=== PATIENT | female | born 1975 | race Caucasian/White ===

== ENCOUNTER 2021-06-16 08:05 | Emergency (ER) | payer BC ==
[~2021-06-16] VITALS: Ht 172.7 cm; Wt 103.0 kg
[2021-06-16 09:11] LABS: BASOPHILS % 0.5 % (0.0-2.0); EOSINOPHILS % 2.5 % (0.0-5.0); HEMATOCRIT. 32.8 % (36.0-48.0); HEMOGLOBIN. 10.9 g/dL (12.0-16.0); LYMPHOCYTES % 27.4 % (20.0-50.0); MEAN CORPUSCULAR HEMOGLOBIN 27.3 pg (28.0-32.0); MEAN PLATELET VOLUME 10.1 fl (7.4-10.4); MONOCYTES % 9.3 % (2.0-8.0); NEUTROPHILS % 60.3 % (40.0-76.0); PLATELET 202 x1000/uL (130-400); RED BLOOD CELL COUNT 3.99 mill/uL (4.2-5.4); RED CELL DISTRIBUTION WIDTH 15.1 % (11.6-14.6)
[2021-06-16 09:17] LABS: CHLORIDE 110 mEq/L (98-107)
[2021-06-16 09:28] LABS: B-HCG QUANTITATIVE 206 mIU/mL (<3)
[2021-06-16 09:37] LABS: CLARITY URINE CLEAR (CLEAR); COLOR URINE YELLOW (YELLOW); KETONES URINE NEGATIVE (NEGATIVE); LEUKOCYTE ESTERASE URINE NEGATIVE (NEGATIVE); NITRITE URINE NEGATIVE (NEGATIVE); OCCULT BLOOD URINE NEGATIVE (NEGATIVE); PROTEIN URINE NEGATIVE (NEGATIVE); SPECIFIC GRAVITY URINE 1.016 (1.005-1.030); UROBILINOGEN URINE 0.2 E.U./dL (0.2-1.0)
[2021-06-16] MEDS ORDERED: RHO(D) IMMUNE GLOBULIN 300 MCG/SYR IM ONE (10:30)
[2021-06-16] MEDS ORDERED: [UNRECOGNIZED DRUG - CODE] VG (10:31)
[2021-06-16 11:44] VITALS: BP 112/66
== END 2021-06-16 11:52 | disposition home or self-care (01) ==
LOC: ER 08:25
DX: O20.0 Threatened abortion (principal); O24.911 Unspecified diabetes mellitus in pregnancy, first trimester; Z3A.01 Less than 8 weeks gestation of pregnancy; Z98.890 Other specified postprocedural states; Z88.2 Allergy status to sulfonamides
CPT/HCPCS: 36415; 76801; 80053; 81003; 81025; 84702; 85025; 86850; 86900; 90384; 96372; 99285